=== PATIENT | male | born 1940 | race Caucasian/White ===

== ENCOUNTER 2018-03-17 22:55 | Inpatient (IN) | payer MEDICARE, OTHER ==
[~2018-03-17] VITALS: Ht 175.3 cm; Wt 101.2 kg
[2018-03-18] LABS: Basophils # (auto) 0 uL; Basophils % (auto) 0.3 % (0.0-2.0); Eosinophils # (auto) 0 uL; Eosinophils % (auto) 0.1 % (0.0-7.0); Hematocrit 39.5 % (41.0-53.0); Hemoglobin 13.1 g/dL (13.5-17.5); Lymphocytes # (auto) 0.8 uL; Lymphocytes % (auto) 6.7 % (10.0-50.0); Mean Corpuscular Hemoglobin 28.3 pg (28.0-32.0); Mean Corpuscular Volume 85.8 fL (80.0-100.0); Monocytes # (auto) 0.5 uL; Monocytes % (auto) 4.5 % (0.0-12.0); Neutrophils # (auto) 10.3 uL; Neutrophils % (auto) 88.4 % (37.0-80.0); Platelet Count (auto) 225 10^3/uL (140-450); Red Blood Cells 4.61 10^6/uL (4.5-5.90); Red Cell Distribution Width 13.3 % (11.8-14.3); White Blood Cell 11.6 10^3/uL (4.4-10.8)
[2018-03-18 00:15] LABS: Albumin 3.3 g/dL (3.4-5.0); BUN/Creatinine Ratio 8.5; Calcium 8.3 mg/dL (8.5-10.1); Potassium 3.6 mmol/L (3.5-5.1)
[2018-03-18 00:31] LABS: Bilirubin, Total 0.8 mg/dL (0.2-1.0); Total Protein 7.4 g/dL (6.4-8.2)
[2018-03-18] MEDS ORDERED: ENOXAPARIN SOD 100 MG/1 ML SYRINGE SC ONE (01:00)
[2018-03-18] MEDS ORDERED: ASPirin 81 mg TAB PO ONE (01:00)
[2018-03-18] MEDS ORDERED: NITROGLYCERIN 0.4 MG SL TAB SL PRN (08:00)
[2018-03-18] MEDS ORDERED: MORPHINE SULFATE 8mg/ml INJ SDV IV PRN (08:00)
[2018-03-18] MEDS ORDERED: HYDROcodone-ACET 5/325MG TAB PO PRN (08:15)
[2018-03-18] MEDS ORDERED: ACETAMINOPHEN 500 MG TAB PO PRN (08:15)
[2018-03-18] MEDS ORDERED: FUROSEMIDE 20 MG/2 ML VIAL IV ONE (08:15)
[2018-03-18] MEDS ORDERED: ONDANSETRON HCL 4 MG/2 ML VIAL IV PRN (08:15)
[2018-03-18 08:55] LABS: Basophils # (auto) 0.1 uL; Basophils % (auto) 0.8 % (0.0-2.0); Eosinophils # (auto) 0.1 uL; Eosinophils % (auto) 0.7 % (0.0-7.0); Hematocrit 38.9 % (41.0-53.0); Hemoglobin 13.1 g/dL (13.5-17.5); Lymphocytes % (auto) 22.2 % (10.0-50.0); Mean Corpuscular Hemoglobin 28.7 pg (28.0-32.0); Mean Corpuscular Hgb Conc. 33.7 g/dL (32.0-36.0); Mean Corpuscular Volume 85.1 fL (80.0-100.0); Monocytes # (auto) 0.7 uL; Neutrophils # (auto) 6.3 uL; Neutrophils % (auto) 68.3 % (37.0-80.0); Platelet Count (auto) 215 10^3/uL (140-450); Red Blood Cells 4.57 10^6/uL (4.5-5.90); Red Cell Distribution Width 13.3 % (11.8-14.3); White Blood Cell 9.2 10^3/uL (4.4-10.8)
[2018-03-18 09:08] LABS: BUN/Creatinine Ratio 9.2; Calcium 8.2 mg/dL (8.5-10.1); Potassium 3.4 mmol/L (3.5-5.1)
[2018-03-18 09:11] LABS: Cholesterol 209 mg/dL (< 200); HDL Cholesterol 34 mg/dL (40-59); LDL Cholesterol 156 mg/dL (< 100); Triglycerides 168 mg/dL (< 150)
[2018-03-18] MEDS: PANTOPRAZOLE 40 MG/10 ML VIAL IV SCH (10:00)
[2018-03-18] MEDS ORDERED: ANGIOMAX 250 MG VIAL IV ONE (10:11)
[2018-03-18] MEDS ORDERED: SODIUM CHL 0.9% 0 ML ONE (10:11)
[2018-03-18] MEDS ORDERED: MIDAZOLAM HCL 1MG/1ML-2 ML VIAL ONE (10:11)
[2018-03-18] MEDS ORDERED: fentaNYL CITRATE 100 MCG/2 ML VL ONE (10:11)
[2018-03-18] MEDS ORDERED: LIDOCAINE 2%HCL (LOCAL ANESTH.) INJ 20ML MDV ONE (10:12)
[2018-03-18] MEDS ORDERED: IODIXANOL 320MG/ML 100ML BTL IV ONE (10:12)
[2018-03-18] MEDS: METOPROLOL TARTRATE 25 MG TAB PO SCH ×2 (10:37→22:05)
[2018-03-18] MEDS ORDERED: ONDANSETRON HCL 4 MG/2 ML VIAL ONE (10:52)
[2018-03-18 12:00] LABS: INR 0.99 (0.9-1.15); Partial Thromboplastin Time 32.9 sec (23.78-33.04); Prothrombin Time 10.6 sec (9.27-12.13)
[2018-03-18 13:06] VITALS: BP 118/58
[2018-03-18] MEDS ORDERED: DEXTROSE (50%) 50ML SYRG IV PRN (16:45)
[2018-03-18 17:00] VITALS: BP 111/58
[2018-03-18] MEDS: ACCU-CHEK COMFORT CURVE STRIP VI SCH ×2 (17:00→22:04)
[2018-03-18] MEDS: ENOXAPARIN SOD 100 MG/1 ML SYRINGE SC SCH (19:27)
[2018-03-18 22:00] VITALS: BP 109/55
[2018-03-18] MEDS: INSULIN LANTUS (GLARGINE) 1 /0.01ml (100units/ml) SC SCH (22:04)
[2018-03-18] MEDS: ATORVASTATIN 20 MG TAB PO SCH (22:05)
[2018-03-19 05:00] VITALS: BP 124/71
[2018-03-19] MEDS: ENOXAPARIN SOD 100 MG/1 ML SYRINGE SC SCH ×3 (06:04→23:36)
[2018-03-19] MEDS: ACCU-CHEK COMFORT CURVE STRIP VI SCH ×4 (06:04→21:48)
[2018-03-19] MEDS ORDERED: ACCU-CHEK COMFORT CURVE STRIP VI ONE (06:15)
[2018-03-19] MEDS ORDERED: ceFAZolin 1GM 2 GM in D5W 5% 50 ML IV ONE (06:15)
[2018-03-19] MEDS ORDERED: VANCOMYCIN 1GM/250ML 250 ML IV ONE (06:15)
[2018-03-19 08:42] LABS: Basophils # (auto) 0.1 uL; Basophils % (auto) 1.1 % (0.0-2.0); Eosinophils # (auto) 0.3 uL; Eosinophils % (auto) 3.8 % (0.0-7.0); Hemoglobin 12.8 g/dL (13.5-17.5); Lymphocytes # (auto) 2.1 uL; Lymphocytes % (auto) 25.1 % (10.0-50.0); Mean Corpuscular Hemoglobin 28.2 pg (28.0-32.0); Mean Corpuscular Hgb Conc. 32.8 g/dL (32.0-36.0); Mean Corpuscular Volume 85.9 fL (80.0-100.0); Monocytes # (auto) 0.7 uL; Monocytes % (auto) 8.7 % (0.0-12.0); Neutrophils # (auto) 5.2 uL; Neutrophils % (auto) 61.3 % (37.0-80.0); Platelet Count (auto) 234 10^3/uL (140-450); Red Blood Cells 4.53 10^6/uL (4.5-5.90); Red Cell Distribution Width 13.5 % (11.8-14.3); White Blood Cell 8.5 10^3/uL (4.4-10.8)
[2018-03-19 09:00] VITALS: BP 123/68
[2018-03-19 09:01] LABS: Albumin 2.8 g/dL (3.4-5.0); BUN/Creatinine Ratio 10.6; Bilirubin, Total 0.8 mg/dL (0.2-1.0); Calcium 8.5 mg/dL (8.5-10.1); Potassium 3.7 mmol/L (3.5-5.1); Total Protein 6.7 g/dL (6.4-8.2)
[2018-03-19] MEDS ORDERED: ASPirin-EC 81 mg tab PO SCH (10:00)
[2018-03-19] MEDS: METOPROLOL TARTRATE 25 MG TAB PO SCH ×2 (10:00→21:49)
[2018-03-19] MEDS: PANTOPRAZOLE 40 MG/10 ML VIAL IV SCH (10:24)
[2018-03-19 13:00] VITALS: BP 127/58
[2018-03-19] MEDS ORDERED: OPTISON 3ml Vial for INJ IV ONE (14:27)
[2018-03-19 16:45] LABS: INR 0.93 (0.9-1.15)
[2018-03-19 17:00] VITALS: BP 128/70
[2018-03-19] MEDS: ATORVASTATIN 20 MG TAB PO SCH (21:49)
[2018-03-19] MEDS: INSULIN LANTUS (GLARGINE) 1 /0.01ml (100units/ml) SC SCH (21:56)
[2018-03-19 22:00] VITALS: BP 150/85
[2018-03-19] MEDS ORDERED: ASCORBIC ACID 500 MG TAB PO ONE (22:00)
[2018-03-19 23:37] LABS: Urine Bacteria NONE SEEN /hpf (None Seen); Urine Blood Negative /uL (Negative); Urine Mucus FEW (None Seen); Urine Specific Gravity 1.009 (1.001-1.035); Urine WBC <1 /hpf (0 - 3)
[2018-03-20] VITALS (48 sets, daily range): BP systolic 22–162; BP diastolic 6–85
[2018-03-20] MEDS ORDERED: CHLORHEXIDINE 4% TOPICAL soln 4or8OZ TOP ONE (02:00)
[2018-03-20] MEDS ORDERED: TAMS0.4C36 PO (04:05)
[2018-03-20] MEDS ORDERED: EXEN1INJ SC (04:05)
[2018-03-20] MEDS ORDERED: NEOMYCIN-BACITRACIN-POLYM 15GM TOP OINT TOP ONE (06:06)
[2018-03-20] MEDS ORDERED: HEPARIN 1,000 UNITS/ml 1ML VIAL ONE (06:07)
[2018-03-20] MEDS ORDERED: BACITRACIN INJ 50000 UNIT VIAL ONE (06:07)
[2018-03-20] MEDS ORDERED: PAPAVERINE HCL 60 MG/2 ML 2ML VIAL ONE (06:07)
[2018-03-20] MEDS ORDERED: CHLORHEXIDINE 0.12% ORAL rinse 473ML MT ONE (06:15)
[2018-03-20] MEDS: ACCU-CHEK COMFORT CURVE STRIP VI SCH ×11 (06:49→23:00)
[2018-03-20] MEDS ORDERED: ceFAZolin 1GM 2 GM in D5W 5% 50 ML IV ONE (07:00)
[2018-03-20] MEDS ORDERED: VANCOMYCIN 1GM/250ML 250 ML IV ONE (07:00)
[2018-03-20] MEDS ORDERED: ALBUMIN 25% 300 ML IV ONE (07:10)
[2018-03-20] MEDS ORDERED: PLASMA-LYTE A pH7.4 8,000 ML INJ ONE (07:11)
[2018-03-20] MEDS ORDERED: fentaNYL CITRATE 10 ML ONE (07:18)
[2018-03-20] MEDS ORDERED: MIDAZOLAM HCL 1MG/1ML-2 ML VIAL ONE (07:18)
[2018-03-20] MEDS ORDERED: PHENYLEPHRINE HCL 10 MG/ML VL ONE (07:19)
[2018-03-20] MEDS ORDERED: PROPOFOL 10 MG/ML 20 ML IV ONE (07:19)
[2018-03-20] MEDS ORDERED: HEPARIN 30000 UNITS in SODIUM CHLORIDE 0.9% 1000 ML IV ONE (08:00)
[2018-03-20] MEDS ORDERED: VASOPRESSIN 50 UNITS in SODIUM CHL 0.9% 247.5 ML IV ONE (08:00)
[2018-03-20] MEDS ORDERED: TRANEXAMIC ACID 1,000 MG in SODIUM CHL 0.9% 100 ML IV ONE (08:00)
[2018-03-20] MEDS ORDERED: EPINEPHrine HCL 4 MG in D5W 5% 250 ML IV ONE (08:00)
[2018-03-20] MEDS ORDERED: InsuLIN R (HUMAN) 100 UNITS in SODIUM CHL 0.9% 99 ML IV ONE (08:00)
[2018-03-20] MEDS ORDERED: PHENYLEPHRINE INJ 20 MG in SODIUM CHL 0.9% 250 ML IV ONE (08:00)
[2018-03-20] MEDS ORDERED: TRANEXAMIC ACID 1,000 mg/10ml INJ VIAL IV ONE ×2 (08:00→20:20)
[2018-03-20] MEDS ORDERED: NOREPINEPHRINE 16 MG/500ML KIT 500 ML IV ONE (08:00)
[2018-03-20] MEDS ORDERED: PLASMA-LYTE A pH7.4 4,000 ML INJ ONE (08:49)
[2018-03-20] MEDS ORDERED: ALBUMIN 25% IV ONE (09:58)
[2018-03-20] MEDS ORDERED: MILRINONE 20 ML ONE (12:55)
[2018-03-20] MEDS: NITROGLYCERIN 50MG/250ML 250 ML IV SCH ×2 (13:00→19:06)
[2018-03-20] MEDS ORDERED: INSULIN DRIP 100 UNIT/100ML 100 ML IV SCH (13:02)
[2018-03-20] MEDS: SODIUM CHLORIDE 0.9% 1,000 ML IV SCH (13:03)
[2018-03-20] MEDS: SODIUM CHLORIDE 0.9% 500 ML IV SCH (13:03)
[2018-03-20] MEDS: NICARDIPINE 25MG/250ML BAG KIT 250 ML IV SCH ×3 (13:03→23:03)
[2018-03-20] MEDS: DEXMEDETOMIDINE HCL 400 MCG in D5W 5% 96 ML IV SCH (13:03)
[2018-03-20 13:04] LABS: Basophils # (auto) 0 uL; Basophils % (auto) 0.3 % (0.0-2.0); Eosinophils # (auto) 0.1 uL; Eosinophils % (auto) 0.4 % (0.0-7.0); Hemoglobin 8.7 g/dL (13.5-17.5); Lymphocytes # (auto) 0.6 uL; Lymphocytes % (auto) 4.6 % (10.0-50.0); Mean Corpuscular Hemoglobin 28.3 pg (28.0-32.0); Mean Corpuscular Hgb Conc. 33.3 g/dL (32.0-36.0); Monocytes # (auto) 0.4 uL; Neutrophils # (auto) 12.8 uL; Neutrophils % (auto) 91.7 % (37.0-80.0); Platelet Count (auto) 165 10^3/uL (140-450); Red Blood Cells 3.06 10^6/uL (4.5-5.90); Red Cell Distribution Width 13.1 % (11.8-14.3)
[2018-03-20] MEDS ORDERED: AMIODARONE HCL 900 MG in DEXTROSE 500 ML IV SCH (13:13)
[2018-03-20] MEDS ORDERED: ALBUMIN 25% 250 ML IV PRN (13:15)
[2018-03-20] MEDS ORDERED: MORPHINE SULFATE 8mg/ml INJ SDV IV PRN ×3 (13:15)
[2018-03-20] MEDS ORDERED: FUROSEMIDE 20 MG/2 ML VIAL IV PRN (13:15)
[2018-03-20] MEDS ORDERED: PROPRANOLOL HCL 1 MG/ML VIAL IV PRN (13:15)
[2018-03-20] MEDS ORDERED: AMIODARONE HCL 150 MG in D5W 5% 100 ML IV ONE (13:15)
[2018-03-20] MEDS ORDERED: METOCLOPRAMIDE HCL 5MG/ml INJ 2ml VIAL IV PRN (13:15)
[2018-03-20] MEDS ORDERED: MAGNESIUM SULFATE 1GM/100ML 100 ML IV PRN (13:15)
[2018-03-20] MEDS ORDERED: CALCIUM GLUC 4.65meq/50ml D5AE 50 ML IV PRN (13:15)
[2018-03-20] MEDS ORDERED: DEXTROSE (50%) 50ML SYRG IV PRN (13:15)
[2018-03-20] MEDS ORDERED: ONDANSETRON HCL 4 MG/2 ML VIAL IV PRN (13:15)
[2018-03-20] MEDS ORDERED: fentaNYL CITRATE 100 MCG/2 ML VL IV PRN (13:15)
[2018-03-20] MEDS ORDERED: SODIUM BICARBONATE 8.4% INJ 50ML SYRINGE IV PRN (13:15)
[2018-03-20] MEDS ORDERED: TEMAZEPAM 15 MG CAP PO PRN (13:15)
[2018-03-20 13:20] LABS: INR 1.13 (0.9-1.15); Partial Thromboplastin Time 27.8 sec (23.78-33.04)
[2018-03-20 13:26] LABS: Albumin 3.8 g/dL (3.4-5.0); BUN/Creatinine Ratio 8.7; Calcium 8.1 mg/dL (8.5-10.1); Potassium 3.6 mmol/L (3.5-5.1); Total Protein 5.9 g/dL (6.4-8.2)
[2018-03-20] MEDS: MILRINONE 20MG/100ML 100 ML IV SCH ×2 (13:30→21:45)
[2018-03-20] MEDS: ACETYLCYSTEINE 10 %(100MG/ML) SOL 4ML NEB SCH ×2 (14:00→22:16)
[2018-03-20] MEDS: IPRATROPIUM BROM 0.5 MG/2.5ML INH SOL NEB SCH ×3 (14:00→22:16)
[2018-03-20 14:08] LABS: Basophils # (auto) 0 uL; Basophils % (auto) 0.4 % (0.0-2.0); Eosinophils # (auto) 0 uL; Eosinophils % (auto) 0.2 % (0.0-7.0); Hematocrit 26.7 % (41.0-53.0); Hemoglobin 9.1 g/dL (13.5-17.5); Lymphocytes # (auto) 0.5 uL; Mean Corpuscular Hemoglobin 29.1 pg (28.0-32.0); Mean Corpuscular Hgb Conc. 34.1 g/dL (32.0-36.0); Mean Corpuscular Volume 85.3 fL (80.0-100.0); Monocytes # (auto) 0.4 uL; Monocytes % (auto) 3.6 % (0.0-12.0); Neutrophils # (auto) 9.5 uL; Neutrophils % (auto) 90.8 % (37.0-80.0); Platelet Count (auto) 163 10^3/uL (140-450); Red Blood Cells 3.14 10^6/uL (4.5-5.90); Red Cell Distribution Width 13.2 % (11.8-14.3); White Blood Cell 10.4 10^3/uL (4.4-10.8)
[2018-03-20 14:20] LABS: INR 1.07 (0.9-1.15); Prothrombin Time 11.4 sec (9.27-12.13)
[2018-03-20 14:40] LABS: Albumin 3.8 g/dL (3.4-5.0); BUN/Creatinine Ratio 8.3; Bilirubin, Total 1.2 mg/dL (0.2-1.0); Calcium 7.9 mg/dL (8.5-10.1); Magnesium 3.3 mg/dL (1.6-2.6); Potassium 3.6 mmol/L (3.5-5.1); Total Protein 6.1 g/dL (6.4-8.2)
[2018-03-20] MEDS: NOREPINEPHRINE 8 MG/250ML KIT 250 ML IV SCH (15:00)
[2018-03-20 15:05] LABS: Phosphorus 0.7 mg/dL (2.5-4.90)
[2018-03-20] MEDS ORDERED: POTASSIUM PHOSPHATE 44 MEQ in D5W 5% 250 ML IV ONE (15:30)
[2018-03-20] MEDS: VANCOMYCIN 1GM/250ML 250 ML IV SCH (16:00)
[2018-03-20] MEDS: ALBUMIN 5% 250 ML IV PRN ×2 (16:36→22:44)
[2018-03-20] MEDS: AZTREONAM 1GM INJ 1 GM in D5W 5% 50 ML IV SCH ×2 (18:05→21:00)
[2018-03-20] MEDS: AMIODARONE HCL 900 MG in DEXTROSE 500 ML IV SCH (19:13)
[2018-03-20] MEDS: POTASSIUM CHL 20MEQ/100ML 100 ML IV PRN ×2 (19:13→20:30)
[2018-03-20] MEDS ORDERED: LIDOCAINE HCL 100 MG/5ML (2%) SYRG INJ IV ONE (20:20)
[2018-03-20] MEDS ORDERED: ADENOSINE 6 MG/2 ML INJ IV ONE (20:20)
[2018-03-20] MEDS ORDERED: DEXAMETHASONE SODIUM PHOSP 120 MG/30ml VIAL IV ONE (20:20)
[2018-03-20] MEDS ORDERED: SODIUM BICARBONATE 8.4 % INJ 50ML VIAL IV ONE (20:20)
[2018-03-20] MEDS ORDERED: FUROSEMIDE 20 MG/2 ML VIAL IV ONE (20:20)
[2018-03-20] MEDS ORDERED: PHENYLEPHRINE HCL 10 MG/ML VL IV ONE (20:20)
[2018-03-20] MEDS ORDERED: HEPARIN SODIUM (PORCINE) 5000 UNITS/ML 1ML VIAL SC ONE (20:20)
[2018-03-20] MEDS ORDERED: MAGNESIUM SULF 50% 40 MEQ/10 ML VL IV ONE (20:20)
[2018-03-20] MEDS ORDERED: CALCIUM CHLOR(10%) 100MG/ML 10ML SYRINGE IV ONE (20:20)
[2018-03-20] MEDS: CHLORHEXIDINE 0.12% ORAL rinse 473ML MT SCH (22:00)
[2018-03-20 22:15] LABS: Basophils # (auto) 0.1 uL; Eosinophils # (auto) 0 uL; Hematocrit 27.7 % (41.0-53.0); Hemoglobin 9.3 g/dL (13.5-17.5); Lymphocytes # (auto) 0.3 uL; Lymphocytes % (auto) 2.1 % (10.0-50.0); Mean Corpuscular Hemoglobin 28.8 pg (28.0-32.0); Mean Corpuscular Hgb Conc. 33.6 g/dL (32.0-36.0); Mean Corpuscular Volume 85.6 fL (80.0-100.0); Monocytes # (auto) 0.3 uL; Monocytes % (auto) 2.6 % (0.0-12.0); Neutrophils # (auto) 12.3 uL; Neutrophils % (auto) 94.3 % (37.0-80.0); Platelet Count (auto) 172 10^3/uL (140-450); Red Blood Cells 3.24 10^6/uL (4.5-5.90); Red Cell Distribution Width 13.2 % (11.8-14.3)
[2018-03-20 23:41] LABS: Phosphorus 1.5 mg/dL (2.5-4.90); Potassium 4.1 mmol/L (3.5-5.1)
[2018-03-21] VITALS (91 sets, daily range): BP systolic 0–143; BP diastolic 0–82
[2018-03-21] MEDS: ACCU-CHEK COMFORT CURVE STRIP VI SCH ×15 (01:00→23:43)
[2018-03-21] MEDS: VANCOMYCIN 1GM/250ML 250 ML IV SCH ×2 (01:30→13:07)
[2018-03-21] MEDS: SODIUM CHLORIDE 0.9% 1,000 ML IV SCH ×3 (01:33→18:00)
[2018-03-21] MEDS: IPRATROPIUM BROM 0.5 MG/2.5ML INH SOL NEB SCH ×6 (02:26→22:33)
[2018-03-21] MEDS: NICARDIPINE 25MG/250ML BAG KIT 250 ML IV SCH ×5 (04:03→23:43)
[2018-03-21] MEDS: AZTREONAM 1GM INJ 1 GM in D5W 5% 50 ML IV SCH ×3 (05:40→21:31)
[2018-03-21 05:57] LABS: Basophils # (auto) 0 uL; Basophils % (auto) 0.2 % (0.0-2.0); Eosinophils # (auto) 0 uL; Hematocrit 25.1 % (41.0-53.0); Hemoglobin 8.6 g/dL (13.5-17.5); Lymphocytes # (auto) 0.6 uL; Mean Corpuscular Hemoglobin 29.1 pg (28.0-32.0); Mean Corpuscular Hgb Conc. 34.1 g/dL (32.0-36.0); Mean Corpuscular Volume 85.5 fL (80.0-100.0); Monocytes # (auto) 0.6 uL; Monocytes % (auto) 3.8 % (0.0-12.0); Neutrophils # (auto) 13.8 uL; Platelet Count (auto) 148 10^3/uL (140-450); Red Blood Cells 2.94 10^6/uL (4.5-5.90); Red Cell Distribution Width 13.5 % (11.8-14.3)
[2018-03-21] MEDS: ACETYLCYSTEINE 10 %(100MG/ML) SOL 4ML NEB SCH ×3 (06:06→22:33)
[2018-03-21 06:10] LABS: BUN/Creatinine Ratio 9.4; Calcium 7.6 mg/dL (8.5-10.1); Magnesium 2.8 mg/dL (1.6-2.6); Phosphorus 2.2 mg/dL (2.5-4.90)
[2018-03-21] MEDS ORDERED: POTASSIUM PHOSPHATE 22 MEQ in SODIUM CHL 0.9% 100 ML IV ONE (06:30)
[2018-03-21] MEDS: NITROGLYCERIN 50MG/250ML 250 ML IV SCH (06:50)
[2018-03-21] MEDS ORDERED: SODIUM CHL 0.9% IV ONE (07:00)
[2018-03-21] MEDS ORDERED: POTASSIUM PHOSPHATE IV ONE (07:00)
[2018-03-21] MEDS: MILRINONE 20MG/100ML 100 ML IV SCH (07:21)
[2018-03-21] MEDS: DEXMEDETOMIDINE HCL 400 MCG in D5W 5% 96 ML IV SCH (09:38)
[2018-03-21] MEDS ORDERED: DEXTROSE (50%) 50ML SYRG IV PRN ×2 (10:00→17:45)
[2018-03-21] MEDS ORDERED: HYDROcodone-ACET 7.5/325MG TAB PO PRN (10:00)
[2018-03-21] MEDS ORDERED: hydrALAZINE HCL 20 MG/ML VL IV PRN ×2 (10:00)
[2018-03-21] MEDS ORDERED: POTASSIUM CHL 20MEQ/100ML 100 ML IV PRN (10:00)
[2018-03-21] MEDS: InsuLIN REG 1unit/0.01ml Soln (100units/ml) SC SCH ×4 (10:00→23:43)
[2018-03-21] MEDS: DOCUSATE SOD 100 MG CAP PO SCH ×2 (10:00→21:30)
[2018-03-21 10:28] LABS: Hematocrit 25.8 % (41.0-53.0); Hemoglobin 8.6 g/dL (13.5-17.5); Mean Corpuscular Hemoglobin 28.6 pg (28.0-32.0); Mean Corpuscular Hgb Conc. 33.3 g/dL (32.0-36.0); Mean Corpuscular Volume 85.7 fL (80.0-100.0); Platelet Count (auto) 142 10^3/uL (140-450); Red Blood Cells 3.01 10^6/uL (4.5-5.90); Red Cell Distribution Width 13.6 % (11.8-14.3); White Blood Cell 16.9 10^3/uL (4.4-10.8)
[2018-03-21 10:35] LABS: Basophils % (manual) 0 (0.0-2.0); Blast Cells 0; Eosinophils % (manual) 0 (0-7); Metamyelocytes % 0; Myelocytes % 0; Promyelocytes % 0; Reactive Lymphocytes 0
[2018-03-21 10:40] LABS: Albumin 3.7 g/dL (3.4-5.0); BUN/Creatinine Ratio 9.5; Bilirubin, Total 0.8 mg/dL (0.2-1.0); Potassium 4.2 mmol/L (3.5-5.1); Total Protein 6.5 g/dL (6.4-8.2)
[2018-03-21] MEDS: CHLORHEXIDINE 0.12% ORAL rinse 473ML MT SCH ×2 (11:06→21:31)
[2018-03-21] MEDS: PANTOPRAZOLE 40 MG/10 ML VIAL IV SCH (11:12)
[2018-03-21] MEDS: NITROGLYCERIN 0.4MG/HR TOPICAL PATCH TD SCH (11:12)
[2018-03-21 11:27] LABS: Band Neutrophils % (manual) 3; Lymphocytes % (manual) 5 (10.0-50.0); Monocytes % (manual) 6 (0-12)
[2018-03-21] MEDS: Boost Glucose Control 8 Ounces PO SCH ×2 (12:00→18:00)
[2018-03-21] MEDS: SODIUM FERR GLUC 62.5MG/5ML 125 MG in SODIUM CHL 0.9% 100 ML IV SCH (12:21)
[2018-03-21] MEDS: SODIUM CHLORIDE 0.9% 500 ML IV SCH (12:54)
[2018-03-21] MEDS: NOREPINEPHRINE 8 MG/250ML KIT 250 ML IV SCH (12:54)
[2018-03-21] MEDS: METOPROLOL TARTRATE 25 MG TAB PO SCH ×2 (13:43→22:00)
[2018-03-21] MEDS: POTASSIUM CHL 20 Meq TABLET PO SCH ×2 (13:44→21:29)
[2018-03-21] MEDS: ASPirin 81 mg TAB PO SCH (13:44)
[2018-03-21] MEDS: ASCORBIC ACID 500 MG TAB PO SCH ×2 (13:44→21:29)
[2018-03-21] MEDS ORDERED: ALBUMIN 25% 250 ML IV PRN (13:45)
[2018-03-21] MEDS ORDERED: fentaNYL CITRATE 100 MCG/2 ML VL IV PRN (14:15)
[2018-03-21] MEDS ORDERED: HALOPERIDOL LACTATE 5 MG/ML INJ VIAL IV PRN (17:45)
[2018-03-21] MEDS ORDERED: ACETAMINOPHEN IV 1000 MG/100ML (10MG/ML) IV ONE (18:15)
[2018-03-21] MEDS ORDERED: ACETAMINOPHEN IV 1000 MG/100ML (10MG/ML) IV PRN (19:00)
[2018-03-21] MEDS: AMIODARONE HCL 900 MG in DEXTROSE 500 ML IV SCH (19:04)
[2018-03-21] MEDS: SENNA 8.6 MG TAB PO PRN (21:29)
[2018-03-21] MEDS: ATORVASTATIN 20 MG TAB PO SCH (21:29)
[2018-03-21] MEDS ORDERED: DOPamine 1600MCG/ML D5W 250 ML IV SCH (21:30)
[2018-03-21] MEDS: FUROSEMIDE 40 MG TAB PO SCH (21:30)
[2018-03-21] MEDS: DOPamine 3200MCG/ML 250 ML IV SCH (21:56)
[2018-03-21] MEDS: HYDROcodone-ACET 5/325MG TAB PO PRN (23:46)
[2018-03-22] VITALS (86 sets, daily range): BP systolic 97–143; BP diastolic 36–79
[2018-03-22] MEDS: AMIODARONE HCL 900 MG in DEXTROSE 500 ML IV SCH (02:15)
[2018-03-22] MEDS: VANCOMYCIN 1GM/250ML 250 ML IV SCH (02:16)
[2018-03-22] MEDS: IPRATROPIUM BROM 0.5 MG/2.5ML INH SOL NEB SCH ×6 (02:42→22:23)
[2018-03-22] MEDS ORDERED: ALBUMIN 5% 250 ML IV ONE (03:34)
[2018-03-22 03:42] LABS: Basophils # (auto) 0 uL; Eosinophils # (auto) 0 uL; Lymphocytes # (auto) 1.1 uL; Lymphocytes % (auto) 7.4 % (10.0-50.0); Mean Corpuscular Hemoglobin 28.9 pg (28.0-32.0); Mean Corpuscular Hgb Conc. 33.2 g/dL (32.0-36.0); Mean Corpuscular Volume 87.1 fL (80.0-100.0); Monocytes # (auto) 0.9 uL; Monocytes % (auto) 5.9 % (0.0-12.0); Neutrophils # (auto) 12.7 uL; Neutrophils % (auto) 86.7 % (37.0-80.0); Platelet Count (auto) 144 10^3/uL (140-450); Red Cell Distribution Width 13.9 % (11.8-14.3); White Blood Cell 14.6 10^3/uL (4.4-10.8)
[2018-03-22] MEDS: InsuLIN REG 1unit/0.01ml Soln (100units/ml) SC SCH ×5 (03:54→20:58)
[2018-03-22] MEDS: ACCU-CHEK COMFORT CURVE STRIP VI SCH ×5 (03:54→20:00)
[2018-03-22 03:59] LABS: Potassium 4.5 mmol/L (3.5-5.1)
[2018-03-22 04:06] LABS: Albumin 3.3 g/dL (3.4-5.0); BUN/Creatinine Ratio 12.6; Calcium 7.3 mg/dL (8.5-10.1); Magnesium 2.4 mg/dL (1.6-2.6)
[2018-03-22 04:15] LABS: Bilirubin, Total 0.9 mg/dL (0.2-1.0); Total Protein 6.1 g/dL (6.4-8.2)
[2018-03-22] MEDS: NICARDIPINE 25MG/250ML BAG KIT 250 ML IV SCH ×4 (05:03→20:03)
[2018-03-22] MEDS: FUROSEMIDE 40 MG TAB PO SCH ×2 (06:06→18:15)
[2018-03-22] MEDS: AZTREONAM 1GM INJ 1 GM in D5W 5% 50 ML IV SCH (06:08)
[2018-03-22] MEDS: ACETYLCYSTEINE 10 %(100MG/ML) SOL 4ML NEB SCH ×3 (06:09→22:23)
[2018-03-22] MEDS: Boost Glucose Control 8 Ounces PO SCH ×3 (08:00→18:00)
[2018-03-22] MEDS: SODIUM CHLORIDE 0.9% 1,000 ML IV SCH ×3 (08:32→23:45)
[2018-03-22] MEDS: METOPROLOL TARTRATE 25 MG TAB PO SCH ×2 (10:01→21:46)
[2018-03-22] MEDS: ASPirin 81 mg TAB PO SCH (11:00)
[2018-03-22] MEDS: POTASSIUM CHL 20 Meq TABLET PO SCH ×2 (11:00→21:45)
[2018-03-22] MEDS: DOCUSATE SOD 100 MG CAP PO SCH ×2 (11:00→21:45)
[2018-03-22] MEDS: ASCORBIC ACID 500 MG TAB PO SCH ×2 (11:00→21:46)
[2018-03-22] MEDS: NITROGLYCERIN 0.4MG/HR TOPICAL PATCH TD SCH (11:00)
[2018-03-22] MEDS: PANTOPRAZOLE 40 MG/10 ML VIAL IV SCH (11:00)
[2018-03-22] MEDS: CHLORHEXIDINE 0.12% ORAL rinse 473ML MT SCH ×2 (11:00→22:00)
[2018-03-22] MEDS: SODIUM FERR GLUC 62.5MG/5ML 125 MG in SODIUM CHL 0.9% 100 ML IV SCH (13:45)
[2018-03-22] MEDS: ATORVASTATIN 20 MG TAB PO SCH (21:45)
[2018-03-22] MEDS: SENNA 8.6 MG TAB PO PRN (21:45)
[2018-03-22] MEDS: HYDROcodone-ACET 5/325MG TAB PO PRN (21:45)
[2018-03-22] MEDS: INSULIN LANTUS (GLARGINE) 1 /0.01ml (100units/ml) SC SCH (21:46)
[2018-03-22] MEDS: DOPamine 3200MCG/ML 250 ML IV SCH (21:56)
[2018-03-22] MEDS ORDERED: NITROGLYCERIN 2% OINT 1GM PKG TD ONE (22:00)
[2018-03-23] VITALS (68 sets, daily range): BP systolic 98–143; BP diastolic 38–83
[2018-03-23] MEDS: ACCU-CHEK COMFORT CURVE STRIP VI SCH ×6 (00:25→20:00)
[2018-03-23] MEDS: InsuLIN REG 1unit/0.01ml Soln (100units/ml) SC SCH ×6 (00:25→20:31)
[2018-03-23] MEDS: NICARDIPINE 25MG/250ML BAG KIT 250 ML IV SCH ×5 (01:03→21:03)
[2018-03-23] MEDS: IPRATROPIUM BROM 0.5 MG/2.5ML INH SOL NEB SCH ×6 (02:21→22:29)
[2018-03-23 04:05] LABS: Basophils # (auto) 0 uL; Basophils % (auto) 0.3 % (0.0-2.0); Eosinophils # (auto) 0.1 uL; Eosinophils % (auto) 0.4 % (0.0-7.0); Hematocrit 27.8 % (41.0-53.0); Hemoglobin 9.1 g/dL (13.5-17.5); Lymphocytes % (auto) 12.9 % (10.0-50.0); Mean Corpuscular Hemoglobin 28.5 pg (28.0-32.0); Mean Corpuscular Hgb Conc. 32.6 g/dL (32.0-36.0); Mean Corpuscular Volume 87.4 fL (80.0-100.0); Monocytes % (auto) 6.6 % (0.0-12.0); Neutrophils # (auto) 12.6 uL; Neutrophils % (auto) 79.8 % (37.0-80.0); Platelet Count (auto) 167 10^3/uL (140-450); Red Blood Cells 3.18 10^6/uL (4.5-5.90); Red Cell Distribution Width 13.3 % (11.8-14.3); White Blood Cell 15.8 10^3/uL (4.4-10.8)
[2018-03-23 04:15] LABS: Calcium 7.4 mg/dL (8.5-10.1); Potassium 3.9 mmol/L (3.5-5.1)
[2018-03-23 04:19] LABS: Albumin 3.1 g/dL (3.4-5.0); BUN/Creatinine Ratio 15.2; Magnesium 2.2 mg/dL (1.6-2.6)
[2018-03-23 04:22] LABS: Bilirubin, Total 1.1 mg/dL (0.2-1.0); Total Protein 6.3 g/dL (6.4-8.2)
[2018-03-23] MEDS: AMIODARONE HCL 900 MG in DEXTROSE 500 ML IV SCH (05:26)
[2018-03-23] MEDS: ACETYLCYSTEINE 10 %(100MG/ML) SOL 4ML NEB SCH ×3 (06:06→22:30)
[2018-03-23] MEDS: FUROSEMIDE 40 MG TAB PO SCH ×2 (06:52→18:00)
[2018-03-23] MEDS: Boost Glucose Control 8 Ounces PO SCH ×3 (08:26→18:00)
[2018-03-23] MEDS: METOPROLOL TARTRATE 25 MG TAB PO SCH ×2 (10:00→21:34)
[2018-03-23] MEDS: CHLORHEXIDINE 0.12% ORAL rinse 473ML MT SCH ×2 (10:00→21:35)
[2018-03-23] MEDS: DOCUSATE SOD 100 MG CAP PO SCH ×2 (10:02→21:33)
[2018-03-23] MEDS: ASPirin 81 mg TAB PO SCH (10:02)
[2018-03-23] MEDS: POTASSIUM CHL 20 Meq TABLET PO SCH ×2 (10:02→21:35)
[2018-03-23] MEDS: PANTOPRAZOLE 40 MG/10 ML VIAL IV SCH (10:02)
[2018-03-23] MEDS: ASCORBIC ACID 500 MG TAB PO SCH ×2 (10:02→21:35)
[2018-03-23] MEDS: NITROGLYCERIN 0.4MG/HR TOPICAL PATCH TD SCH (11:13)
[2018-03-23] MEDS: SODIUM FERR GLUC 62.5MG/5ML 125 MG in SODIUM CHL 0.9% 100 ML IV SCH (12:00)
[2018-03-23] MEDS: SODIUM CHLORIDE 0.9% 1,000 ML IV SCH ×2 (12:06→19:45)
[2018-03-23 17:40] LABS: Potassium 4.2 mmol/L (3.5-5.1)
[2018-03-23 17:43] LABS: Magnesium 2.1 mg/dL (1.6-2.6)
[2018-03-23] MEDS ORDERED: fentaNYL CITRATE 100 MCG/2 ML VL IV PRN (19:00)
[2018-03-23] MEDS: ATORVASTATIN 20 MG TAB PO SCH (21:33)
[2018-03-23] MEDS: AMIODARONE HCL 200 MG TAB PO SCH (21:35)
[2018-03-23] MEDS: INSULIN LANTUS (GLARGINE) 1 /0.01ml (100units/ml) SC SCH (21:36)
[2018-03-23] MEDS: DOPamine 3200MCG/ML 250 ML IV SCH (21:56)
[2018-03-23] MEDS: HYDROcodone-ACET 5/325MG TAB PO PRN (22:05)
[2018-03-24] VITALS (100 sets, daily range): BP systolic 93–142; BP diastolic 40–77
[2018-03-24] MEDS: IPRATROPIUM BROM 0.5 MG/2.5ML INH SOL NEB SCH ×6 (02:00→21:59)
[2018-03-24] MEDS: NICARDIPINE 25MG/250ML BAG KIT 250 ML IV SCH ×4 (02:03→16:12)
[2018-03-24] MEDS: HYDROcodone-ACET 5/325MG TAB PO PRN ×2 (03:30→12:15)
[2018-03-24] MEDS: ACCU-CHEK COMFORT CURVE STRIP VI SCH ×6 (04:00→21:06)
[2018-03-24] MEDS: InsuLIN REG 1unit/0.01ml Soln (100units/ml) SC SCH ×6 (04:00→21:06)
[2018-03-24 05:13] LABS: Basophils # (auto) 0 uL; Basophils % (auto) 0.1 % (0.0-2.0); Eosinophils # (auto) 0.3 uL; Eosinophils % (auto) 2.6 % (0.0-7.0); Hematocrit 28.2 % (41.0-53.0); Hemoglobin 9.3 g/dL (13.5-17.5); Lymphocytes # (auto) 1.7 uL; Mean Corpuscular Hgb Conc. 33.1 g/dL (32.0-36.0); Mean Corpuscular Volume 87.5 fL (80.0-100.0); Monocytes # (auto) 0.9 uL; Monocytes % (auto) 8.2 % (0.0-12.0); Neutrophils # (auto) 8.3 uL; Neutrophils % (auto) 74.1 % (37.0-80.0); Platelet Count (auto) 185 10^3/uL (140-450); Red Blood Cells 3.23 10^6/uL (4.5-5.90); Red Cell Distribution Width 13.6 % (11.8-14.3); White Blood Cell 11.2 10^3/uL (4.4-10.8)
[2018-03-24 05:37] LABS: Albumin 2.8 g/dL (3.4-5.0); BUN/Creatinine Ratio 18.6; Bilirubin, Total 0.9 mg/dL (0.2-1.0); Calcium 7.8 mg/dL (8.5-10.1); Potassium 3.9 mmol/L (3.5-5.1); Total Protein 6.2 g/dL (6.4-8.2)
[2018-03-24] MEDS: FUROSEMIDE 40 MG TAB PO SCH ×2 (05:38→18:05)
[2018-03-24] MEDS: ACETYLCYSTEINE 10 %(100MG/ML) SOL 4ML NEB SCH ×3 (06:22→22:00)
[2018-03-24] MEDS: SODIUM CHLORIDE 0.9% 1,000 ML IV SCH ×3 (08:53→18:05)
[2018-03-24] MEDS: Boost Glucose Control 8 Ounces PO SCH ×3 (08:53→18:05)
[2018-03-24] MEDS: PANTOPRAZOLE 40 MG/10 ML VIAL IV SCH (10:09)
[2018-03-24] MEDS: POTASSIUM CHL 20 Meq TABLET PO SCH ×2 (10:09→21:32)
[2018-03-24] MEDS: NITROGLYCERIN 0.4MG/HR TOPICAL PATCH TD SCH (10:09)
[2018-03-24] MEDS: AMIODARONE HCL 200 MG TAB PO SCH ×2 (10:09→21:30)
[2018-03-24] MEDS: DOCUSATE SOD 100 MG CAP PO SCH ×2 (10:09→21:31)
[2018-03-24] MEDS: ASCORBIC ACID 500 MG TAB PO SCH ×2 (10:09→21:31)
[2018-03-24] MEDS: ASPirin 81 mg TAB PO SCH (10:09)
[2018-03-24] MEDS: METOPROLOL TARTRATE 25 MG TAB PO SCH ×2 (10:10→21:43)
[2018-03-24] MEDS: CHLORHEXIDINE 0.12% ORAL rinse 473ML MT SCH ×2 (10:10→21:32)
[2018-03-24] MEDS ORDERED: MAGNESIUM SULFATE 1GM/100ML 100 ML IV PRN (10:30)
[2018-03-24] MEDS ORDERED: CALCIUM GLUC 4.65meq/50ml D5AE 50 ML IV ONE (10:30)
[2018-03-24] MEDS ORDERED: MAGNESIUM SULFATE 1GM/100ML 100 ML IV ONE (10:30)
[2018-03-24] MEDS ORDERED: glipiZIDE 5 MG TAB PO ONE (10:30)
[2018-03-24] MEDS ORDERED: POTASSIUM CHL 20 Meq TABLET PO PRN (10:30)
[2018-03-24] MEDS ORDERED: CALCIUM GLUC 4.65meq/50ml D5AE 50 ML IV PRN (10:30)
[2018-03-24] MEDS: SODIUM FERR GLUC 62.5MG/5ML 125 MG in SODIUM CHL 0.9% 100 ML IV SCH (14:22)
[2018-03-24] MEDS: INSULIN LANTUS (GLARGINE) 1 /0.01ml (100units/ml) SC SCH ×2 (14:43→21:34)
[2018-03-24 16:20] LABS: BUN/Creatinine Ratio 17.8; Calcium 8.1 mg/dL (8.5-10.1); Potassium 4.3 mmol/L (3.5-5.1)
[2018-03-24] MEDS: PRO-STAT 64 30ML PO SCH (18:05)
[2018-03-24] MEDS: ATORVASTATIN 20 MG TAB PO SCH (21:30)
[2018-03-25] VITALS (81 sets, daily range): BP systolic 97–144; BP diastolic 42–78
[2018-03-25] MEDS: DOPamine 3200MCG/ML 250 ML IV SCH ×2 (00:15→21:56)
[2018-03-25] MEDS: HYDROcodone-ACET 5/325MG TAB PO PRN ×2 (00:15→20:56)
[2018-03-25] MEDS: ACCU-CHEK COMFORT CURVE STRIP VI SCH ×6 (00:16→20:00)
[2018-03-25] MEDS: NICARDIPINE 25MG/250ML BAG KIT 250 ML IV SCH ×6 (00:16→23:03)
[2018-03-25] MEDS: IPRATROPIUM BROM 0.5 MG/2.5ML INH SOL NEB SCH ×6 (01:51→22:25)
[2018-03-25 03:32] LABS: Basophils # (auto) 0 uL; Basophils % (auto) 0.4 % (0.0-2.0); Eosinophils # (auto) 0.3 uL; Eosinophils % (auto) 3.5 % (0.0-7.0); Hematocrit 25.6 % (41.0-53.0); Hemoglobin 8.7 g/dL (13.5-17.5); Lymphocytes # (auto) 1.8 uL; Lymphocytes % (auto) 18.8 % (10.0-50.0); Mean Corpuscular Hemoglobin 29.6 pg (28.0-32.0); Mean Corpuscular Hgb Conc. 33.9 g/dL (32.0-36.0); Mean Corpuscular Volume 87.2 fL (80.0-100.0); Monocytes # (auto) 1.1 uL; Monocytes % (auto) 11.7 % (0.0-12.0); Neutrophils # (auto) 6.2 uL; Neutrophils % (auto) 65.6 % (37.0-80.0); Platelet Count (auto) 201 10^3/uL (140-450); Red Blood Cells 2.93 10^6/uL (4.5-5.90); Red Cell Distribution Width 13.5 % (11.8-14.3); White Blood Cell 9.5 10^3/uL (4.4-10.8)
[2018-03-25 03:46] LABS: Albumin 2.6 g/dL (3.4-5.0); BUN/Creatinine Ratio 18.4; Calcium 7.4 mg/dL (8.5-10.1); Magnesium 2.2 mg/dL (1.6-2.6)
[2018-03-25 03:49] LABS: Bilirubin, Total 0.9 mg/dL (0.2-1.0); Total Protein 5.9 g/dL (6.4-8.2)
[2018-03-25] MEDS: SODIUM CHLORIDE 0.9% 1,000 ML IV SCH ×2 (04:06→09:25)
[2018-03-25] MEDS: InsuLIN REG 1unit/0.01ml Soln (100units/ml) SC SCH ×6 (04:37→20:00)
[2018-03-25] MEDS: FUROSEMIDE 40 MG TAB PO SCH ×2 (06:10→18:41)
[2018-03-25] MEDS: glipiZIDE 5 MG TAB PO SCH (06:13)
[2018-03-25] MEDS: ACETYLCYSTEINE 10 %(100MG/ML) SOL 4ML NEB SCH ×3 (07:14→22:25)
[2018-03-25] MEDS: PRO-STAT 64 30ML PO SCH ×2 (08:49→18:00)
[2018-03-25] MEDS: Boost Glucose Control 8 Ounces PO SCH ×3 (08:49→18:00)
[2018-03-25] MEDS: CHLORHEXIDINE 0.12% ORAL rinse 473ML MT SCH ×2 (10:00→20:56)
[2018-03-25] MEDS: AMIODARONE HCL 200 MG TAB PO SCH ×2 (10:05→20:56)
[2018-03-25] MEDS: DOCUSATE SOD 100 MG CAP PO SCH ×2 (10:05→20:56)
[2018-03-25] MEDS: NITROGLYCERIN 0.4MG/HR TOPICAL PATCH TD SCH (10:05)
[2018-03-25] MEDS: PANTOPRAZOLE 40 MG TAB PO SCH (10:05)
[2018-03-25] MEDS: METOPROLOL TARTRATE 25 MG TAB PO SCH ×2 (10:05→20:55)
[2018-03-25] MEDS: ASCORBIC ACID 500 MG TAB PO SCH ×2 (10:06→20:55)
[2018-03-25] MEDS: ASPirin 81 mg TAB PO SCH (10:06)
[2018-03-25] MEDS: POTASSIUM CHL 20 Meq TABLET PO SCH ×2 (10:06→20:54)
[2018-03-25] MEDS: INSULIN LANTUS (GLARGINE) 1 /0.01ml (100units/ml) SC SCH ×2 (10:08→22:02)
[2018-03-25] MEDS: SODIUM FERR GLUC 62.5MG/5ML 125 MG in SODIUM CHL 0.9% 100 ML IV SCH (12:45)
[2018-03-25] MEDS: ATORVASTATIN 20 MG TAB PO SCH (20:55)
[2018-03-26] VITALS (88 sets, daily range): BP systolic 93–144; BP diastolic 41–83
[2018-03-26] MEDS: IPRATROPIUM BROM 0.5 MG/2.5ML INH SOL NEB SCH ×6 (02:00→22:00)
[2018-03-26 03:46] LABS: Basophils # (auto) 0.1 uL; Basophils % (auto) 0.5 % (0.0-2.0); Eosinophils # (auto) 0.5 uL; Eosinophils % (auto) 4.8 % (0.0-7.0); Hematocrit 27.3 % (41.0-53.0); Lymphocytes # (auto) 2.3 uL; Lymphocytes % (auto) 21.6 % (10.0-50.0); Mean Corpuscular Hemoglobin 29.2 pg (28.0-32.0); Mean Corpuscular Hgb Conc. 32.9 g/dL (32.0-36.0); Monocytes # (auto) 1.3 uL; Monocytes % (auto) 12.4 % (0.0-12.0); Neutrophils # (auto) 6.4 uL; Neutrophils % (auto) 60.7 % (37.0-80.0); Platelet Count (auto) 225 10^3/uL (140-450); Red Blood Cells 3.06 10^6/uL (4.5-5.90); Red Cell Distribution Width 13.7 % (11.8-14.3); White Blood Cell 10.6 10^3/uL (4.4-10.8)
[2018-03-26] MEDS: InsuLIN REG 1unit/0.01ml Soln (100units/ml) SC SCH ×6 (04:00→20:00)
[2018-03-26] MEDS: NICARDIPINE 25MG/250ML BAG KIT 250 ML IV SCH ×4 (04:03→19:03)
[2018-03-26 04:08] LABS: Calcium 8.1 mg/dL (8.5-10.1); Potassium 4.2 mmol/L (3.5-5.1)
[2018-03-26] MEDS: ACCU-CHEK COMFORT CURVE STRIP VI SCH ×6 (04:22→20:00)
[2018-03-26] MEDS: SODIUM CHLORIDE 0.9% 1,000 ML IV SCH (05:00)
[2018-03-26] MEDS: FUROSEMIDE 40 MG TAB PO SCH ×2 (05:46→17:27)
[2018-03-26] MEDS: glipiZIDE 5 MG TAB PO SCH (05:53)
[2018-03-26] MEDS: ACETYLCYSTEINE 10 %(100MG/ML) SOL 4ML NEB SCH ×3 (06:34→22:00)
[2018-03-26] MEDS: Boost Glucose Control 8 Ounces PO SCH ×3 (08:00→21:59)
[2018-03-26] MEDS: INSULIN LANTUS (GLARGINE) 1 /0.01ml (100units/ml) SC SCH ×2 (11:00→22:31)
[2018-03-26] MEDS: PRO-STAT 64 30ML PO SCH ×2 (11:57→16:18)
[2018-03-26] MEDS: CHLORHEXIDINE 0.12% ORAL rinse 473ML MT SCH ×2 (11:58→22:43)
[2018-03-26] MEDS: ASPirin 81 mg TAB PO SCH (12:07)
[2018-03-26] MEDS: NITROGLYCERIN 0.4MG/HR TOPICAL PATCH TD SCH (12:07)
[2018-03-26] MEDS: DOCUSATE SOD 100 MG CAP PO SCH ×2 (12:07→22:28)
[2018-03-26] MEDS: METOPROLOL TARTRATE 25 MG TAB PO SCH ×2 (12:08→22:27)
[2018-03-26] MEDS: AMIODARONE HCL 200 MG TAB PO SCH ×2 (12:08→22:28)
[2018-03-26] MEDS: PANTOPRAZOLE 40 MG TAB PO SCH (12:08)
[2018-03-26] MEDS: POTASSIUM CHL 20 Meq TABLET PO SCH ×2 (12:08→22:28)
[2018-03-26] MEDS: SODIUM FERR GLUC 62.5MG/5ML 125 MG in SODIUM CHL 0.9% 100 ML IV SCH (13:46)
[2018-03-26] MEDS ORDERED: SODIUM CHLORIDE 0.9% 1,000 ML IV SCH (16:30)
[2018-03-26] MEDS: DOPamine 3200MCG/ML 250 ML IV SCH (21:56)
[2018-03-26] MEDS: ATORVASTATIN 20 MG TAB PO SCH (22:27)
[2018-03-26] MEDS: HYDROcodone-ACET 5/325MG TAB PO PRN (22:35)
[2018-03-27] VITALS (14 sets, daily range): BP systolic 99–121; BP diastolic 48–69
[2018-03-27] MEDS: NICARDIPINE 25MG/250ML BAG KIT 250 ML IV SCH ×3 (00:03→10:03)
[2018-03-27 05:22] LABS: Basophils # (auto) 0.1 uL; Hemoglobin 8.4 g/dL (13.5-17.5); Neutrophils # (auto) 10.3 uL; Red Cell Distribution Width 13.9 % (11.8-14.3)
[2018-03-27 05:24] LABS: Basophils % (auto) 0.6 % (0.0-2.0); Eosinophils # (auto) 0.3 uL; Eosinophils % (auto) 2.3 % (0.0-7.0); Hematocrit 25.1 % (41.0-53.0); Lymphocytes # (auto) 2.1 uL; Lymphocytes % (auto) 14.6 % (10.0-50.0); Mean Corpuscular Hemoglobin 29.1 pg (28.0-32.0); Mean Corpuscular Hgb Conc. 33.4 g/dL (32.0-36.0); Monocytes # (auto) 1.3 uL; Monocytes % (auto) 9.2 % (0.0-12.0); Neutrophils % (auto) 73.3 % (37.0-80.0); Platelet Count (auto) 267 10^3/uL (140-450); Red Blood Cells 2.89 10^6/uL (4.5-5.90); White Blood Cell 14.1 10^3/uL (4.4-10.8)
[2018-03-27 05:40] LABS: BUN/Creatinine Ratio 17.4; Calcium 8.1 mg/dL (8.5-10.1); Potassium 4.2 mmol/L (3.5-5.1)
[2018-03-27] MEDS ORDERED: ACCU-CHEK COMFORT CURVE STRIP VI SCH (06:00)
[2018-03-27] MEDS: InsuLIN REG 1unit/0.01ml Soln (100units/ml) SC SCH ×3 (06:00→18:00)
[2018-03-27] MEDS: ACCU-CHEK COMFORT CURVE STRIP VI SCH ×3 (06:09→18:00)
[2018-03-27] MEDS: FUROSEMIDE 40 MG TAB PO SCH ×2 (06:11→18:00)
[2018-03-27] MEDS: glipiZIDE 5 MG TAB PO SCH (06:13)
[2018-03-27] MEDS: IPRATROPIUM BROM 0.5 MG/2.5ML INH SOL NEB SCH ×5 (06:15→22:02)
[2018-03-27] MEDS: ACETYLCYSTEINE 10 %(100MG/ML) SOL 4ML NEB SCH ×3 (06:16→22:02)
[2018-03-27] MEDS: PRO-STAT 64 30ML PO SCH ×2 (08:00→18:00)
[2018-03-27] MEDS: Boost Glucose Control 8 Ounces PO SCH ×3 (08:00→18:00)
[2018-03-27] MEDS: INSULIN LANTUS (GLARGINE) 1 /0.01ml (100units/ml) SC SCH ×2 (10:41→22:15)
[2018-03-27] MEDS: ASPirin 81 mg TAB PO SCH (10:42)
[2018-03-27] MEDS: DOCUSATE SOD 100 MG CAP PO SCH ×3 (10:42→22:30)
[2018-03-27] MEDS: CHLORHEXIDINE 0.12% ORAL rinse 473ML MT SCH ×2 (10:42→22:15)
[2018-03-27] MEDS: POTASSIUM CHL 20 Meq TABLET PO SCH ×2 (10:43→22:15)
[2018-03-27] MEDS: AMIODARONE HCL 200 MG TAB PO SCH ×2 (10:43→22:15)
[2018-03-27] MEDS: METOPROLOL TARTRATE 25 MG TAB PO SCH ×2 (10:44→22:15)
[2018-03-27] MEDS: PANTOPRAZOLE 40 MG TAB PO SCH (10:44)
[2018-03-27] MEDS: NITROGLYCERIN 0.4MG/HR TOPICAL PATCH TD SCH (10:48)
[2018-03-27] MEDS ORDERED: PIPERACILLIN-TAZOB 3.375GM 100 ML IV ONE (11:45)
[2018-03-27] MEDS: LINEZOLID 600MG TABLET PO SCH ×2 (13:15→22:15)
[2018-03-27] MEDS: SODIUM FERR GLUC 62.5MG/5ML 125 MG in SODIUM CHL 0.9% 100 ML IV SCH (14:13)
[2018-03-27 14:54] LABS: Basophils # (auto) 0.1 uL; Basophils % (auto) 0.4 % (0.0-2.0); Eosinophils # (auto) 0.4 uL; Eosinophils % (auto) 2.9 % (0.0-7.0); Hematocrit 26.4 % (41.0-53.0); Hemoglobin 8.7 g/dL (13.5-17.5); Lymphocytes # (auto) 1.4 uL; Lymphocytes % (auto) 11.2 % (10.0-50.0); Mean Corpuscular Hemoglobin 29.3 pg (28.0-32.0); Mean Corpuscular Hgb Conc. 33.1 g/dL (32.0-36.0); Mean Corpuscular Volume 88.4 fL (80.0-100.0); Monocytes # (auto) 1.3 uL; Monocytes % (auto) 10.4 % (0.0-12.0); Neutrophils # (auto) 9.5 uL; Neutrophils % (auto) 75.1 % (37.0-80.0); Platelet Count (auto) 270 10^3/uL (140-450); Red Blood Cells 2.99 10^6/uL (4.5-5.90); Red Cell Distribution Width 13.9 % (11.8-14.3); White Blood Cell 12.7 10^3/uL (4.4-10.8)
[2018-03-27] MEDS ORDERED: FUROSEMIDE 20 MG/2 ML VIAL IV ONE (15:00)
[2018-03-27] MEDS: SODIUM CHLORIDE 0.9% 1,000 ML IV SCH (15:15)
[2018-03-27] MEDS: PIPERACILLIN-TAZOB 3.375GM 100 ML IV SCH (18:47)
[2018-03-27] MEDS: ATORVASTATIN 20 MG TAB PO SCH (22:15)
[2018-03-28] VITALS (8 sets, daily range): BP systolic 109–132; BP diastolic 51–71
[2018-03-28] MEDS: ACCU-CHEK COMFORT CURVE STRIP VI SCH ×4 (00:20→17:59)
[2018-03-28] MEDS: PIPERACILLIN-TAZOB 3.375GM 100 ML IV SCH ×4 (00:20→18:05)
[2018-03-28] MEDS: InsuLIN REG 1unit/0.01ml Soln (100units/ml) SC SCH ×4 (00:20→18:00)
[2018-03-28] MEDS: IPRATROPIUM BROM 0.5 MG/2.5ML INH SOL NEB SCH ×6 (02:00→22:12)
[2018-03-28 05:46] LABS: Basophils # (auto) 0.1 uL; Basophils % (auto) 0.5 % (0.0-2.0); Eosinophils # (auto) 0.5 uL; Eosinophils % (auto) 5.2 % (0.0-7.0); Hematocrit 25.5 % (41.0-53.0); Hemoglobin 8.7 g/dL (13.5-17.5); Lymphocytes # (auto) 1.5 uL; Lymphocytes % (auto) 14.6 % (10.0-50.0); Mean Corpuscular Hemoglobin 29.8 pg (28.0-32.0); Mean Corpuscular Hgb Conc. 34.2 g/dL (32.0-36.0); Monocytes # (auto) 1.1 uL; Neutrophils # (auto) 7.1 uL; Neutrophils % (auto) 68.7 % (37.0-80.0); Platelet Count (auto) 276 10^3/uL (140-450); Red Blood Cells 2.93 10^6/uL (4.5-5.90); Red Cell Distribution Width 14.4 % (11.8-14.3); White Blood Cell 10.3 10^3/uL (4.4-10.8)
[2018-03-28] MEDS: FUROSEMIDE 40 MG TAB PO SCH (06:00)
[2018-03-28 06:06] LABS: Albumin 2.5 g/dL (3.4-5.0)
[2018-03-28 06:09] LABS: Bilirubin, Total 0.8 mg/dL (0.2-1.0); Total Protein 6.2 g/dL (6.4-8.2)
[2018-03-28] MEDS: ACETYLCYSTEINE 10 %(100MG/ML) SOL 4ML NEB SCH ×3 (06:35→22:12)
[2018-03-28] MEDS: glipiZIDE 5 MG TAB PO SCH (07:01)
[2018-03-28] MEDS: PRO-STAT 64 30ML PO SCH ×2 (08:00→17:59)
[2018-03-28] MEDS: Boost Glucose Control 8 Ounces PO SCH ×3 (08:00→17:58)
[2018-03-28] MEDS: POTASSIUM CHL 20 Meq TABLET PO SCH ×2 (10:00→21:43)
[2018-03-28] MEDS: PANTOPRAZOLE 40 MG TAB PO SCH (10:00)
[2018-03-28] MEDS ORDERED: MEGESTROL ACET 400MG/10ML ORAL SUSP PO ONE (10:15)
[2018-03-28] MEDS: CHLORHEXIDINE 0.12% ORAL rinse 473ML MT SCH ×2 (10:17→21:42)
[2018-03-28] MEDS: NITROGLYCERIN 0.4MG/HR TOPICAL PATCH TD SCH (10:28)
[2018-03-28] MEDS: ASPirin 81 mg TAB PO SCH (10:29)
[2018-03-28] MEDS: INSULIN LANTUS (GLARGINE) 1 /0.01ml (100units/ml) SC SCH ×2 (10:29→21:43)
[2018-03-28] MEDS: METOPROLOL TARTRATE 25 MG TAB PO SCH (10:30)
[2018-03-28] MEDS: DOCUSATE SOD 100 MG CAP PO SCH ×2 (10:31→21:42)
[2018-03-28] MEDS: AMIODARONE HCL 200 MG TAB PO SCH ×2 (10:31→21:43)
[2018-03-28] MEDS: LINEZOLID 600MG TABLET PO SCH ×2 (10:40→21:58)
[2018-03-28] MEDS: SODIUM FERR GLUC 62.5MG/5ML 125 MG in SODIUM CHL 0.9% 100 ML IV SCH (14:00)
[2018-03-28] MEDS: SODIUM CHLORIDE 0.9% 1,000 ML IV SCH (15:15)
[2018-03-28] MEDS: hydrALAZINE HCL 25 MG TAB PO SCH (18:00)
[2018-03-28] MEDS: FUROSEMIDE 40 MG/4 ML VIAL IV SCH (18:05)
[2018-03-28] MEDS: ATORVASTATIN 20 MG TAB PO SCH (21:43)
[2018-03-28] MEDS: MEGESTROL ACET 400MG/10ML ORAL SUSP PO SCH ×2 (21:43→22:00)
[2018-03-28] MEDS: CARVEDILOL 3.125 MG TAB PO SCH (22:00)
[2018-03-29] VITALS (16 sets, daily range): BP systolic 100–115; BP diastolic 46–76
[2018-03-29] MEDS: PIPERACILLIN-TAZOB 3.375GM 100 ML IV SCH ×3 (00:04→12:48)
[2018-03-29] MEDS: ACCU-CHEK COMFORT CURVE STRIP VI SCH ×5 (00:05→23:30)
[2018-03-29] MEDS: IPRATROPIUM BROM 0.5 MG/2.5ML INH SOL NEB SCH ×6 (03:40→22:19)
[2018-03-29] MEDS: InsuLIN REG 1unit/0.01ml Soln (100units/ml) SC SCH ×5 (06:00→23:41)
[2018-03-29] MEDS: hydrALAZINE HCL 25 MG TAB PO SCH ×4 (06:00→18:00)
[2018-03-29] MEDS: FUROSEMIDE 40 MG/4 ML VIAL IV SCH ×2 (06:16→18:20)
[2018-03-29] MEDS: ACETYLCYSTEINE 10 %(100MG/ML) SOL 4ML NEB SCH ×3 (06:16→22:19)
[2018-03-29] MEDS: glipiZIDE 5 MG TAB PO SCH (07:06)
[2018-03-29] MEDS: PRO-STAT 64 30ML PO SCH ×2 (08:51→18:03)
[2018-03-29] MEDS: Boost Glucose Control 8 Ounces PO SCH ×3 (08:51→18:02)
[2018-03-29] MEDS: LINEZOLID 600MG TABLET PO SCH ×2 (09:58→21:48)
[2018-03-29] MEDS: MEGESTROL ACET 400MG/10ML ORAL SUSP PO SCH ×2 (09:58→21:48)
[2018-03-29] MEDS: NITROGLYCERIN 0.4MG/HR TOPICAL PATCH TD SCH (09:58)
[2018-03-29] MEDS: INSULIN LANTUS (GLARGINE) 1 /0.01ml (100units/ml) SC SCH ×2 (09:59→21:45)
[2018-03-29] MEDS: ASPirin 81 mg TAB PO SCH (09:59)
[2018-03-29] MEDS: PANTOPRAZOLE 40 MG TAB PO SCH (10:00)
[2018-03-29] MEDS ORDERED: ISOSORBIDE MONONITRATE 60 MG TAB PO ONE (10:00)
[2018-03-29] MEDS: AMIODARONE HCL 200 MG TAB PO SCH ×2 (10:00→21:46)
[2018-03-29] MEDS: CARVEDILOL 3.125 MG TAB PO SCH ×2 (10:00→21:48)
[2018-03-29] MEDS: DOCUSATE SOD 100 MG CAP PO SCH ×2 (10:00→21:46)
[2018-03-29] MEDS: POTASSIUM CHL 20 Meq TABLET PO SCH ×2 (10:00→21:46)
[2018-03-29] MEDS: CHLORHEXIDINE 0.12% ORAL rinse 473ML MT SCH ×2 (10:03→22:01)
[2018-03-29] MEDS ORDERED: MILRINONE 4 MG in SODIUM CHL 0.9% 50 ML IV ONE (13:30)
[2018-03-29] MEDS ORDERED: MORPHINE SULFATE 8mg/ml INJ SDV IV PRN (13:45)
[2018-03-29] MEDS ORDERED: HYDROcodone-ACET 5/325MG TAB PO PRN (13:45)
[2018-03-29] MEDS ORDERED: MORPHINE SULFATE 4 MG/ML SYR/VIAL IV PRN (14:00)
[2018-03-29] MEDS: ISOSORBIDE MONONITRATE 60 MG TAB PO SCH (14:30)
[2018-03-29] MEDS: MILRINONE 20MG/100ML 100 ML IV SCH ×2 (15:22→21:58)
[2018-03-29] MEDS: ATORVASTATIN 20 MG TAB PO SCH (21:46)
[2018-03-30] VITALS (9 sets, daily range): BP systolic 107–124; BP diastolic 47–71
[2018-03-30] MEDS: IPRATROPIUM BROM 0.5 MG/2.5ML INH SOL NEB SCH ×6 (02:00→22:08)
[2018-03-30] MEDS: hydrALAZINE HCL 25 MG TAB PO SCH ×3 (05:52→21:40)
[2018-03-30] MEDS: FUROSEMIDE 40 MG/4 ML VIAL IV SCH ×2 (05:52→17:36)
[2018-03-30] MEDS: ACCU-CHEK COMFORT CURVE STRIP VI SCH ×4 (05:59→23:47)
[2018-03-30] MEDS: InsuLIN REG 1unit/0.01ml Soln (100units/ml) SC SCH ×4 (06:00→23:47)
[2018-03-30 06:11] LABS: Basophils # (auto) 0 uL; Basophils % (auto) 0.4 % (0.0-2.0); Eosinophils # (auto) 0.3 uL; Eosinophils % (auto) 3.4 % (0.0-7.0); Hematocrit 25.3 % (41.0-53.0); Hemoglobin 8.7 g/dL (13.5-17.5); Lymphocytes # (auto) 1.6 uL; Lymphocytes % (auto) 17.7 % (10.0-50.0); Mean Corpuscular Hemoglobin 29.9 pg (28.0-32.0); Mean Corpuscular Hgb Conc. 34.3 g/dL (32.0-36.0); Monocytes % (auto) 10.9 % (0.0-12.0); Neutrophils # (auto) 6.3 uL; Neutrophils % (auto) 67.6 % (37.0-80.0); Platelet Count (auto) 328 10^3/uL (140-450); Red Cell Distribution Width 14.4 % (11.8-14.3); White Blood Cell 9.3 10^3/uL (4.4-10.8)
[2018-03-30] MEDS: MILRINONE 20MG/100ML 100 ML IV SCH ×2 (06:18→15:52)
[2018-03-30 06:26] LABS: Albumin 2.4 g/dL (3.4-5.0); BUN/Creatinine Ratio 11.8; Bilirubin, Total 0.7 mg/dL (0.2-1.0); Calcium 7.9 mg/dL (8.5-10.1); Potassium 3.5 mmol/L (3.5-5.1); Total Protein 6.1 g/dL (6.4-8.2)
[2018-03-30] MEDS: ACETYLCYSTEINE 10 %(100MG/ML) SOL 4ML NEB SCH ×3 (06:26→22:09)
[2018-03-30] MEDS: glipiZIDE 5 MG TAB PO SCH (07:00)
[2018-03-30] MEDS: LINEZOLID 600MG TABLET PO SCH (10:39)
[2018-03-30] MEDS: POTASSIUM CHL 20 Meq TABLET PO SCH ×2 (10:39→21:36)
[2018-03-30] MEDS: ISOSORBIDE MONONITRATE 60 MG TAB PO SCH (10:44)
[2018-03-30] MEDS: AMIODARONE HCL 200 MG TAB PO SCH ×2 (10:45→21:35)
[2018-03-30] MEDS: CARVEDILOL 3.125 MG TAB PO SCH ×2 (10:45→21:36)
[2018-03-30] MEDS: PANTOPRAZOLE 40 MG TAB PO SCH (10:46)
[2018-03-30] MEDS: MEGESTROL ACET 400MG/10ML ORAL SUSP PO SCH ×2 (10:46→21:36)
[2018-03-30] MEDS: ASPirin 81 mg TAB PO SCH (10:46)
[2018-03-30] MEDS: CHLORHEXIDINE 0.12% ORAL rinse 473ML MT SCH ×3 (10:46→22:00)
[2018-03-30] MEDS: DOCUSATE SOD 100 MG CAP PO SCH (10:47)
[2018-03-30] MEDS: PRO-STAT 64 30ML PO SCH ×2 (11:15→18:00)
[2018-03-30] MEDS: INSULIN LANTUS (GLARGINE) 1 /0.01ml (100units/ml) SC SCH ×2 (11:15→22:00)
[2018-03-30] MEDS: Boost Glucose Control 8 Ounces PO SCH ×3 (11:15→22:00)
[2018-03-30] MEDS: ATORVASTATIN 20 MG TAB PO SCH (21:36)
[2018-03-31] VITALS (8 sets, daily range): BP systolic 112–128; BP diastolic 52–62
[2018-03-31] MEDS: MILRINONE 20MG/100ML 100 ML IV SCH ×2 (00:11→08:18)
[2018-03-31] MEDS: IPRATROPIUM BROM 0.5 MG/2.5ML INH SOL NEB SCH ×5 (02:00→18:07)
[2018-03-31] MEDS: ACCU-CHEK COMFORT CURVE STRIP VI SCH ×3 (05:23→18:20)
[2018-03-31] MEDS: FUROSEMIDE 40 MG/4 ML VIAL IV SCH ×2 (05:23→18:23)
[2018-03-31] MEDS: InsuLIN REG 1unit/0.01ml Soln (100units/ml) SC SCH ×3 (05:30→18:00)
[2018-03-31] MEDS: glipiZIDE 5 MG TAB PO SCH (05:30)
[2018-03-31] MEDS: ACETYLCYSTEINE 10 %(100MG/ML) SOL 4ML NEB SCH (06:01)
[2018-03-31] MEDS: PRO-STAT 64 30ML PO SCH ×2 (08:00→18:20)
[2018-03-31] MEDS: Boost Glucose Control 8 Ounces PO SCH ×3 (08:00→18:20)
[2018-03-31] MEDS: MEGESTROL ACET 400MG/10ML ORAL SUSP PO SCH (09:46)
[2018-03-31] MEDS: ISOSORBIDE MONONITRATE 60 MG TAB PO SCH (09:46)
[2018-03-31] MEDS: POTASSIUM CHL 20 Meq TABLET PO SCH (09:46)
[2018-03-31] MEDS: AMIODARONE HCL 200 MG TAB PO SCH (09:47)
[2018-03-31] MEDS: ASPirin 81 mg TAB PO SCH (09:47)
[2018-03-31] MEDS: PANTOPRAZOLE 40 MG TAB PO SCH (09:47)
[2018-03-31] MEDS: CHLORHEXIDINE 0.12% ORAL rinse 473ML MT SCH (09:48)
[2018-03-31] MEDS: CARVEDILOL 3.125 MG TAB PO SCH (09:48)
[2018-03-31] MEDS: INSULIN LANTUS (GLARGINE) 1 /0.01ml (100units/ml) SC SCH (09:55)
[2018-03-31] MEDS: hydrALAZINE HCL 25 MG TAB PO SCH (10:00)
[2018-03-31 14:24] LABS: Basophils # (auto) 0.1 uL; Basophils % (auto) 1.3 % (0.0-2.0); Eosinophils # (auto) 0.3 uL; Eosinophils % (auto) 2.9 % (0.0-7.0); Hematocrit 27.4 % (41.0-53.0); Hemoglobin 9.3 g/dL (13.5-17.5); Lymphocytes # (auto) 1.3 uL; Lymphocytes % (auto) 12.8 % (10.0-50.0); Mean Corpuscular Hemoglobin 29.6 pg (28.0-32.0); Mean Corpuscular Hgb Conc. 33.8 g/dL (32.0-36.0); Mean Corpuscular Volume 87.7 fL (80.0-100.0); Monocytes # (auto) 0.7 uL; Monocytes % (auto) 7.2 % (0.0-12.0); Neutrophils # (auto) 7.7 uL; Neutrophils % (auto) 75.8 % (37.0-80.0); Platelet Count (auto) 352 10^3/uL (140-450); Red Blood Cells 3.13 10^6/uL (4.5-5.90); Red Cell Distribution Width 14.6 % (11.8-14.3); White Blood Cell 10.1 10^3/uL (4.4-10.8)
[2018-03-31 14:48] LABS: Albumin 2.5 g/dL (3.4-5.0); BUN/Creatinine Ratio 12.4; Bilirubin, Total 0.7 mg/dL (0.2-1.0); Potassium 3.8 mmol/L (3.5-5.1); Total Protein 6.7 g/dL (6.4-8.2)
[2018-03-31] MEDS ORDERED: CITALOPRAM HYDROBR 20 MG TAB PO SCH (18:00)
[2018-03-31] MEDS ORDERED: TAMSULOSIN HYDROCHLORIDE 0.4 MG CAP PO SCH (18:00)
== END 2018-03-31 17:20 | DRG 165 ==
LOC: EDBD 22:55 → ER 22:55 → TELE 22:56 → TELE-WESTW 03-18 12:46 → ICU WEST 03-20 12:32 → DOU IN ICU 03-26 21:38
PROVIDERS: ADMIT Nurse Practitioner Family; ATTEND Internal Medicine
PROC: 4A023N7 Measurement of Cardiac Sampling and Pressure, Left Heart, Percutaneous Approach (ICD-10-PCS; principal; 2018-03-18)
PROC: B2111ZZ Fluoroscopy of Multiple Coronary Arteries using Low Osmolar Contrast (ICD-10-PCS; 2018-03-18)
PROC: B2151ZZ Fluoroscopy of Left Heart using Low Osmolar Contrast (ICD-10-PCS; 2018-03-18)
PROC: 02100Z9 Bypass Coronary Artery, One Artery from Left Internal Mammary, Open Approach (ICD-10-PCS; 2018-03-20)
PROC: 06BP4ZZ Excision of Right Saphenous Vein, Percutaneous Endoscopic Approach (ICD-10-PCS; 2018-03-20)
PROC: 5A1221Z Performance of Cardiac Output, Continuous (ICD-10-PCS; 2018-03-20)
PROC: 5A09357 Assistance with Respiratory Ventilation, Less than 24 Consecutive Hours, Continuous Positive Airway Pressure (ICD-10-PCS; 2018-03-20)
PROC: 5A09357 Assistance with Respiratory Ventilation, Less than 24 Consecutive Hours, Continuous Positive Airway Pressure (ICD-10-PCS; 2018-03-21)
PROC: 5A09357 Assistance with Respiratory Ventilation, Less than 24 Consecutive Hours, Continuous Positive Airway Pressure (ICD-10-PCS; 2018-03-22)
PROC: 5A09357 Assistance with Respiratory Ventilation, Less than 24 Consecutive Hours, Continuous Positive Airway Pressure (ICD-10-PCS; 2018-03-23)
PROC: 5A09357 Assistance with Respiratory Ventilation, Less than 24 Consecutive Hours, Continuous Positive Airway Pressure (ICD-10-PCS; 2018-03-24)
PROC: 5A09357 Assistance with Respiratory Ventilation, Less than 24 Consecutive Hours, Continuous Positive Airway Pressure (ICD-10-PCS; 2018-03-25)
PROC: 5A09357 Assistance with Respiratory Ventilation, Less than 24 Consecutive Hours, Continuous Positive Airway Pressure (ICD-10-PCS; 2018-03-26)
PROC: 5A09357 Assistance with Respiratory Ventilation, Less than 24 Consecutive Hours, Continuous Positive Airway Pressure (ICD-10-PCS; 2018-03-27)
PROC: 5A09357 Assistance with Respiratory Ventilation, Less than 24 Consecutive Hours, Continuous Positive Airway Pressure (ICD-10-PCS; 2018-03-28)
PROC: 5A09357 Assistance with Respiratory Ventilation, Less than 24 Consecutive Hours, Continuous Positive Airway Pressure (ICD-10-PCS; 2018-03-29)
PROC: 5A09357 Assistance with Respiratory Ventilation, Less than 24 Consecutive Hours, Continuous Positive Airway Pressure (ICD-10-PCS; 2018-03-30)
PROC: 5A09357 Assistance with Respiratory Ventilation, Less than 24 Consecutive Hours, Continuous Positive Airway Pressure (ICD-10-PCS; 2018-03-31)
DX: I21.4 Non-ST elevation (NSTEMI) myocardial infarction (principal); G93.41 Metabolic encephalopathy; I50.43 Acute on chronic combined systolic (congestive) and diastolic (congestive) heart failure; N17.9 Acute kidney failure, unspecified; E44.1 Mild protein-calorie malnutrition; E11.22 Type 2 diabetes mellitus with diabetic chronic kidney disease; I25.82 Chronic total occlusion of coronary artery; I42.9 Cardiomyopathy, unspecified; I13.0 Hypertensive heart and chronic kidney disease with heart failure and stage 1 through stage 4 chronic kidney disease, or unspecified chronic kidney disease; I25.10 Atherosclerotic heart disease of native coronary artery without angina pectoris; D64.9 Anemia, unspecified; E11.51 Type 2 diabetes mellitus with diabetic peripheral angiopathy without gangrene; E11.65 Type 2 diabetes mellitus with hyperglycemia; E78.5 Hyperlipidemia, unspecified; F17.200 Nicotine dependence, unspecified, uncomplicated; F32.9 Major depressive disorder, single episode, unspecified; I25.5 Ischemic cardiomyopathy; J44.9 Chronic obstructive pulmonary disease, unspecified; K52.9 Noninfective gastroenteritis and colitis, unspecified; N18.9 Chronic kidney disease, unspecified; N39.498 Other specified urinary incontinence; E66.9 Obesity, unspecified; N40.1 Benign prostatic hyperplasia with lower urinary tract symptoms; R29.702 NIHSS score 2; Z79.4 Long term (current) use of insulin; Z82.49 Family history of ischemic heart disease and other diseases of the circulatory system; Z91.81 History of falling; Z95.1 Presence of aortocoronary bypass graft; Z98.61 Coronary angioplasty status; Z79.899 Other long term (current) drug therapy; Z68.32 Body mass index [BMI] 32.0-32.9, adult
CPT/HCPCS: 33508; 33510; 36415; 36600; 70450; 71045; 80048; 80053; 80061; 81001; 82565; 82805; 82962; 83036; 83735; 83880; 84100; 84132; 84484; 85007; 85025; 85027; 85576; 85610; 85730; 86850; 86900; 86901; 86920; 87045; 87070; 87081; 87205; 87493; 87899; 92610; 93005; 93306; 93458; 93886; 93970; 94002; 94640; 94660; 94667; 94668; 96372; 96374; 96375; 97116; 97163; 99152; C1751; C1768; C9113; J0131; J0153; J0610; J0690; J1100; J1265; J1642; J1644; J1815; J2250; J2405; J2440; J2543; J2704; J3480; J7060; Q9956; Q9967